=== PATIENT | female | born 1970 | race Two or more races ===

== ENCOUNTER 2017-04-17 05:42 | Emergency (ER) | payer MEDICARE, OTHER ==
[~2017-04-17] VITALS: Ht 157.5 cm; Wt 62.6 kg
--- NOTE | 2017-04-17 05:45 | NUR ---
PT [facility]IBA#[id number] FROM [facility], PT C/O TINGLING AND PRESSURE IN HANDS AND FEET X 1 HOUR [employer] A[employer]LYST DENIES TRAUMA OR INJURY. VSS. NAD NOTED. NONDIAPHORETIC. COMFORT MEASURES RENDERED. AWAITING FOR ER MD BAH.
--- NOTE | 2017-04-17 06:10 | NUR ---
DR ESCALERA AT BEDSIDE TO EVALUATE PATIENT.
[2017-04-17] MEDS ORDERED: IBUPROFEN 600 MG TABLET PO ONE ×2 (06:20→06:30)
--- NOTE | 2017-04-17 07:13 | NUR ---
REPORT GIVEN TO SONIA CARO FOR NAYELY.
[2017-04-17 08:30] VITALS: BP 122/64
--- NOTE | 2017-04-17 08:32 | NUR ---
Patient discharged to home in stable condition. Written and verbal after care instructions given. Patient verbalizes understanding of instruction.
== END 2017-04-17 08:31 | disposition home or self-care (01) ==
LOC: ER 05:46
DX: S90.822A Blister (nonthermal), left foot, initial encounter (principal); S90.821A Blister (nonthermal), right foot, initial encounter; G40.909 Epilepsy, unspecified, not intractable, without status epilepticus; J45.909 Unspecified asthma, uncomplicated; C34.90 Malignant neoplasm of unspecified part of unspecified bronchus or lung; C50.819 Malignant neoplasm of overlapping sites of unspecified female breast; C79.89 Secondary malignant neoplasm of other specified sites; Z86.73 Personal history of transient ischemic attack (TIA), and cerebral infarction without residual deficits; Z88.0 Allergy status to penicillin; Z59.0 Homelessness; X58.XXXA Exposure to other specified factors, initial encounter; Y93.89 Activity, other specified; Y92.89 Other specified places as the place of occurrence of the external cause; Y99.8 Other external cause status
CPT/HCPCS: A4606; Z7610

== ENCOUNTER 2017-09-25 09:34 | Emergency (ER) | payer MEDICARE, OTHER ==
[~2017-09-25] VITALS: Ht 167.6 cm; Wt 65.8 kg
[2017-09-25] MEDS ORDERED: ONDANSETRON 4 MG TAB.RAPDIS ONE (09:51)
[2017-09-25] MEDS ORDERED: ACETAMINOPHEN ES 500 MG TABLET ONE (09:51)
[2017-09-25 09:59] VITALS: BP 115/82
[2017-09-25] MEDS ORDERED: ACETAMINOPHEN ES 500 MG TABLET PO ONE (10:00)
[2017-09-25] MEDS ORDERED: ONDANSETRON 4 MG TAB.RAPDIS SL ONE (10:00)
[2017-09-25] MEDS ORDERED: IBUPROFEN 600 MG TABLET PO ONE ×2 (10:04→10:30)
--- NOTE | 2017-09-25 10:04 | NUR ---
PT TO ED ROOM 15. [id number]: LUQ PAIN S/P TAKING MORNING AFTER. A/A/O. NAD. VS WNL. SIDERAISL UP. HOB ELEVATED. SEEN AND EVALAUTED BY ED PROVIDER.
--- NOTE | 2017-09-25 10:52 | NUR ---
Patient discharged to home in stable condition. Written and verbal after care instructions given. Patient verbalizes understanding of instruction.
== END 2017-09-25 10:53 | disposition home or self-care (01) ==
LOC: ER 09:35
DX: R10.12 Left upper quadrant pain (principal); J45.909 Unspecified asthma, uncomplicated; Z86.73 Personal history of transient ischemic attack (TIA), and cerebral infarction without residual deficits; Z85.3 Personal history of malignant neoplasm of breast; Z85.118 Personal history of other malignant neoplasm of bronchus and lung; Z85.53 Personal history of malignant neoplasm of renal pelvis; Z88.0 Allergy status to penicillin; Z88.6 Allergy status to analgesic agent; Z59.0 Homelessness
CPT/HCPCS: 99283; Q0162; Z7610